=== PATIENT | male | born 1960 | race Caucasian/White ===

== ENCOUNTER 2017-03-23 14:40 | Emergency (ER) | payer OTHER ==
[~2017-03-23] VITALS: Ht 167.6 cm; Wt 70.3 kg
[~2017-03-23 14:40] MED LIST: ACETAMINOPHEN325 M1 PO; ATRIPLA TABLET1 EACH PO; ETHAMBUTOL HCL100 MG PO; NORCO 5-325 TA1 EACH PO; PYRAZINAMIDE 5500 M1 PO; PYRIDOXINE HCL50 MG PO; RIFAMPIN 300 M300 MG PO; ZOFRAN4 MG PO; [UNRECOGNIZED DRUG - CODE] PO
[2017-03-23 14:41] VITALS: BP 116/70
== END 2017-03-23 17:25 | disposition home or self-care (01) ==
LOC: ER 14:40
DX: S61.411A Laceration without foreign body of right hand, initial encounter (principal); Z98.890 Other specified postprocedural states; W27.8XXA Contact with other nonpowered hand tool, initial encounter; Y93.89 Activity, other specified; Y92.89 Other specified places as the place of occurrence of the external cause; Y99.0 Civilian activity done for income or pay

== ENCOUNTER 2017-03-31 12:29 | Emergency (ER) | payer OTHER ==
[~2017-03-31] VITALS: Ht 170.2 cm; Wt 77.1 kg
[2017-03-31 13:11] VITALS: BP 126/77
== END 2017-03-31 13:12 | disposition home or self-care (01) ==
LOC: ER 12:29
DX: S51.811D Laceration without foreign body of right forearm, subsequent encounter (principal); Z21 Asymptomatic human immunodeficiency virus [HIV] infection status; Z86.2 Personal history of diseases of the blood and blood-forming organs and certain disorders involving the immune mechanism; X58.XXXD Exposure to other specified factors, subsequent encounter

== ENCOUNTER 2019-05-05 11:54 | Emergency (ER) | payer OTHER ==
[~2019-05-05] VITALS: Ht 172.7 cm; Wt 68.0 kg
[2019-05-05 14:20] VITALS: BP 132/57
== END 2019-05-05 14:21 | disposition home or self-care (01) ==
LOC: ER 11:54
DX: S16.1XXA Strain of muscle, fascia and tendon at neck level, initial encounter (principal); R51 Headache; Z86.2 Personal history of diseases of the blood and blood-forming organs and certain disorders involving the immune mechanism; W20.8XXA Other cause of strike by thrown, projected or falling object, initial encounter; Y93.89 Activity, other specified; Y92.89 Other specified places as the place of occurrence of the external cause; Y99.0 Civilian activity done for income or pay

== ENCOUNTER 2021-01-14 12:12 | Emergency (ER) | payer OTHER ==
[~2021-01-14] VITALS: Ht 170.2 cm; Wt 72.6 kg
[2021-01-14 13:59] VITALS: BP 112/66
[2021-01-14] MEDS ORDERED: NORCO5 PO (15:17)
== END 2021-01-14 16:02 | disposition home or self-care (01) ==
LOC: ER 12:12
DX: S01.112A Laceration without foreign body of left eyelid and periocular area, initial encounter (principal); Z21 Asymptomatic human immunodeficiency virus [HIV] infection status; W10.8XXA Fall (on) (from) other stairs and steps, initial encounter; Y93.89 Activity, other specified; Y92.89 Other specified places as the place of occurrence of the external cause; Y99.8 Other external cause status

== ENCOUNTER 2021-01-21 10:10 | Emergency (ER) | payer OTHER ==
[~2021-01-21] VITALS: Ht 170.2 cm; Wt 72.6 kg
[~2021-01-21 10:10] MED LIST changes: +NORCO5 PO
== END 2021-01-21 11:24 | disposition home or self-care (01) ==
LOC: ER 10:10
DX: S01.112D Laceration without foreign body of left eyelid and periocular area, subsequent encounter (principal); Z86.2 Personal history of diseases of the blood and blood-forming organs and certain disorders involving the immune mechanism; X58.XXXD Exposure to other specified factors, subsequent encounter